=== PATIENT | male | born 1945 | race Caucasian/White ===

== ENCOUNTER 2024-08-19 01:06 | Inpatient (IN) | payer MEDICARE, OTHER ==
[2024-08-19] VITALS (9 sets, daily range): BP systolic 112–117; BP diastolic 51–59; TEMP 97.6–98; O2SAT 95–100
[~2024-08-19] VITALS: Ht 177.8 cm; Wt 106.1 kg
[2024-08-19] MEDS ORDERED: LORAZEPAM (01:22)
[2024-08-19] MEDS ORDERED: GABAPENTIN (01:22)
[2024-08-19] MEDS ORDERED: METFORMIN (01:22)
[2024-08-19] MEDS ORDERED: LOSARTAN (01:22)
[2024-08-19] MEDS: IPRATROPIUM BROMIDE 0.5 MG/2.5 ML NEBU NEB ONE ×2 (01:29→14:28)
[2024-08-19] MEDS: ALBUTEROL SULFATE 2.5 MG/3 ML NEBU NEB ONE (01:30)
[2024-08-19] MEDS ORDERED: ASPIRIN 81 MG TAB.CHEW ONE (01:33)
[2024-08-19] MEDS ORDERED: FUROSEMIDE 20 MG/2 ML VIAL ONE (01:34)
[2024-08-19] MEDS ORDERED: ALBUTEROL SULFATE 2.5 MG/3 ML NEBU ONE (01:34)
[2024-08-19] MEDS ORDERED: IPRATROPIUM BROMIDE 0.5 MG/2.5 ML NEBU ONE (01:34)
[2024-08-19] MEDS ORDERED: NITROGLYCERIN OINT 1 GM PACKET TP ONE ×2 (01:34→01:40)
[2024-08-19] MEDS ORDERED: methylPREDNISolone SOD SUCC 125 MG/2 ML VIAL ONE (01:34)
[2024-08-19] MEDS: methylPREDNISolone SOD SUCC 125 MG/2 ML VIAL IV ONE (01:54)
[2024-08-19] MEDS: FUROSEMIDE 20 MG/2 ML VIAL IV ONE (01:55)
[2024-08-19] MEDS: NITROGLYCERIN OINT 1 GM PACKET TP ONE (01:55)
[2024-08-19] MEDS: ASPIRIN 81 MG TAB.CHEW PO ONE (01:55)
[2024-08-19 01:57] LABS: BASOPHILS # (AUTO) 0.1 K/UL (0.0-0.2); BASOPHILS % (AUTO) 0.8 % (0.0-2.0); EOSINOPHILS # (AUTO) 0.2 K/uL (0.0-0.7); EOSINOPHILS % (AUTO) 2.1 % (0.0-7.0); HEMATOCRIT 35.9 % (36.7-47.1); HEMOGLOBIN 12.2 g/dL (12.5-16.3); LYMPHOCYTES # (AUTO) 1.3 K/uL (0.8-4.8); LYMPHOCYTES % (AUTO) 13.4 % (20.5-51.5); MEAN CORPUSCULAR HEMOGLOBIN 34.6 uug (23.8-33.4); MEAN CORPUSCULAR HGB CONC 34 g/dL (32.5-36.3); MONOCYTES # (AUTO) 0.6 K/uL (0.1-1.30); NEUTROPHILS # (AUTO) 7.7 K/uL (1.8-8.9); NEUTROPHILS % (AUTO) 77.7 % (38.5-71.5); PLATELET COUNT (AUTO) 232 K/uL (152-348); RED BLOOD CELL COUNT(AUTO) 3.52 MIL/uL (4.06-5.63); RED CELL DISTRIBUTION WIDTH 14.1 % (12.1-16.2); WHITE BLOOD COUNT (AUTO) 9.9 K/uL (3.6-10.2)
[2024-08-19 01:58] LABS: DIFFERENTIAL COMMENT 1
[2024-08-19] MEDS ORDERED: HYDROMORPHONE 1 MG/1 ML DISP.SYRIN ONE (02:00)
[2024-08-19] MEDS ORDERED: ONDANSETRON 4 MG/2 ML VIAL ONE (02:00)
[2024-08-19] MEDS: HYDROMORPHONE 1 MG/1 ML DISP.SYRIN IM ONE (02:05)
[2024-08-19] MEDS: ONDANSETRON 4 MG/2 ML VIAL IV ONE (02:05)
[2024-08-19 02:10] LABS: CALCIUM 8.3 mg/dL (8.5-10.1); CARBON DIOXIDE 29 mmol/L (21-32); CHLORIDE 103 mmol/L (98-107); CREATININE 0.9 mg/dL (0.6-1.3); GLUCOSE 151 mg/dL (74-106); POTASSIUM 3.8 mmol/L (3.5-5.1); SODIUM SERUM 139 mmol/L (136-145); UREA NITROGEN, BLOOD 24 mg/dL (7-18)
[2024-08-19 02:18] LABS: ALANINE AMINOTRANSFERASE 26 U/L (16-63); ALBUMIN 3.4 g/dL (3.4-5.0); ALKALINE PHOSPHATASE 55 U/L (50-136); ASPARTATE AMINOTRANSFERASE 12 U/L (15-37); BILIRUBIN,DIRECT 0.2 mg/dL (0.0-0.2); BILIRUBIN,TOTAL 0.6 mg/dL (0.2-1.0); NT-PRO BNP 156 pg/mL (0-125); TOTAL PROTEIN, SERUM 6.6 g/dL (6.4-8.2)
[2024-08-19] MEDS ORDERED: SWABABLE VALVE TRANSFER SET EA MC ONE (03:50)
[2024-08-19] MEDS ORDERED: IV NORMAL SALINE 250 ML IV ONE (03:50)
[2024-08-19] MEDS ORDERED: IOHEXOL 350 100 ML INFUS..BTL ONE (03:50)
[2024-08-19] MEDS ORDERED: ENOXAPARIN SODIUM 100 MG/ML DISP.SYRIN SQ ONE (06:45)
[2024-08-19] MEDS: ENOXAPARIN SODIUM 100 MG/ML DISP.SYRIN SQ ONE (06:51)
[2024-08-19] MEDS ORDERED: REMEDY ESSENTIAL ZINC PASTE 113 GM TP PRN (08:15)
[2024-08-19] MEDS ORDERED: ACETAMINOPHEN 325 MG TABLET PO PRN (08:15)
[2024-08-19] MEDS ORDERED: ONDANSETRON 4 MG/2 ML VIAL IV PRN (08:15)
[2024-08-19] MEDS ORDERED: GABA300C PO (11:43)
[2024-08-19] MEDS ORDERED: METF-440 PO (11:45)
[2024-08-19] MEDS ORDERED: ERGO500040 PO (11:49)
[2024-08-19] MEDS ORDERED: CLON0.1T PO (11:49)
[2024-08-19] MEDS ORDERED: METO50TA16 PO (11:50)
[2024-08-19] MEDS ORDERED: AMLO10TA59 PO (11:51)
[2024-08-19] MEDS ORDERED: ASPI81TA31 PO (11:52)
[2024-08-19] MEDS ORDERED: OMEP40CA21 PO (11:53)
[2024-08-19] MEDS ORDERED: LOSA-22 PO (11:53)
[2024-08-19] MEDS ORDERED: EZET10TA15 PO (11:55)
[2024-08-19] MEDS ORDERED: ROSU10TA2 PO (11:55)
[2024-08-19] MEDS ORDERED: ICOS1CAP PO (11:59)
[2024-08-19] MEDS ORDERED: TAMS-3 PO (11:59)
[2024-08-19] MEDS ORDERED: SPIR25TA6 PO (12:00)
[2024-08-19] MEDS ORDERED: IBUP-1955 PO (12:04)
[2024-08-19] MEDS ORDERED: ACET-2605 PO (12:04)
[2024-08-19] MEDS ORDERED: MOUNJARO 5 MG/0.5 ML SUBCUT (13:34)
[2024-08-19] MEDS ORDERED: ALBUTEROL SULFATE 2.5 MG/3 ML NEBU NEB PRN ×2 (14:15→14:30)
[2024-08-19] MEDS: ALBUTEROL SULFATE 2.5 MG/3 ML NEBU NEB SCH (14:28)
[2024-08-19] MEDS: IPRATROPIUM BROMIDE 0.5 MG/2.5 ML NEBU NEB SCH (14:45)
[2024-08-19] MEDS ORDERED: IPRATROPIUM BROMIDE 0.5 MG/2.5 ML NEBU NEB PRN (14:45)
[2024-08-19] MEDS ORDERED: DEXTROSE 50% 50 ML DISP.SYRIN IV PRN (16:00)
[2024-08-19] MEDS ORDERED: HYDROCODONE/APAP 10-325 MG TABLET PO PRN (16:30)
[2024-08-19] MEDS: HYDROCODONE/APAP 10-325 MG TABLET PO PRN (16:52)
[2024-08-19] MEDS: CEFEPIME HCL 1 G in IV DEXTROSE 5% 50 ML IV SCH (16:53)
[2024-08-19] MEDS: NICOTINE 14 MG/24HR PATCH TD SCH (16:53)
[2024-08-19] MEDS: BLOOD SUGAR DIAGNOSTIC 1 EACH STRIP VI SCH (17:00)
[2024-08-19] MEDS: INSULIN REGULAR, HUMAN 1000 UNIT/10 ML VIAL SQ PRN (17:02)
[2024-08-19] MEDS: FUROSEMIDE 40 MG/4 ML VIAL IV ONE (17:17)
[2024-08-19] MEDS: AZITHROMYCIN IV 500 MG in IV DEXTROSE 5% 250 ML IV SCH (18:11)
[2024-08-19] MEDS ORDERED: Medication Not On Formulary EA (Icosapent Ethyl (Vascepa) 2 GM) PO SCH (18:30)
[2024-08-19] MEDS ORDERED: Medication Not On Formulary EA (Rosuvastatin Calcium (Crestor) 10 MG) PO SCH (21:00)
[2024-08-19] MEDS ORDERED: ATORVASTATIN 20 MG TABLET PO SCH (21:00)
[2024-08-19] MEDS: TAMSULOSIN HCL 0.4 MG CAP.SR.24H PO SCH (21:40)
[2024-08-19] MEDS: METOPROLOL TARTRATE 50 MG TABLET PO SCH (21:41)
[2024-08-19] MEDS: GABAPENTIN 300 MG CAPSULE PO SCH (21:41)
[2024-08-19] MEDS: ENOXAPARIN SODIUM 100 MG/ML DISP.SYRIN SQ SCH (21:44)
[2024-08-19] MEDS: methylPREDNISolone SOD SUCC 125 MG/2 ML VIAL IV SCH (21:56)
[2024-08-20] VITALS (14 sets, daily range): BP systolic 92–132; BP diastolic 42–71; TEMP 97.6–98.9; O2SAT 92–98
[2024-08-20] MEDS: PANTOPRAZOLE SODIUM 40 MG TABLET.DR PO SCH (06:12)
[2024-08-20 06:59] LABS: BASOPHILS % (AUTO) 0.3 % (0.0-2.0); HEMATOCRIT 31.9 % (36.7-47.1); HEMOGLOBIN 10.8 g/dL (12.5-16.3); LYMPHOCYTES # (AUTO) 0.8 K/uL (0.8-4.8); LYMPHOCYTES % (AUTO) 10.1 % (20.5-51.5); MEAN CORPUSCULAR HEMOGLOBIN 34.7 uug (23.8-33.4); MEAN CORPUSCULAR HGB CONC 34 g/dL (32.5-36.3); MEAN CORPUSCULAR VOLUME 102.2 fL (73.0-96.2); MONOCYTES # (AUTO) 0.2 K/uL (0.1-1.30); MONOCYTES % (AUTO) 2.2 % (0.0-11.0); NEUTROPHILS # (AUTO) 6.6 K/uL (1.8-8.9); NEUTROPHILS % (AUTO) 87.4 % (38.5-71.5); PLATELET COUNT (AUTO) 241 K/uL (152-348); RED BLOOD CELL COUNT(AUTO) 3.12 MIL/uL (4.06-5.63); RED CELL DISTRIBUTION WIDTH 13.9 % (12.1-16.2); WHITE BLOOD COUNT (AUTO) 7.5 K/uL (3.6-10.2)
[2024-08-20 07:04] LABS: DIFFERENTIAL COMMENT 1
[2024-08-20 07:10] LABS: CALCIUM 7.9 mg/dL (8.5-10.1); CARBON DIOXIDE 28 mmol/L (21-32); CHLORIDE 102 mmol/L (98-107); CREATININE 1.5 mg/dL (0.6-1.3); GLUCOSE 250 mg/dL (74-106); MAGNESIUM 2.4 mg/dL (1.8-2.4); PHOSPHOROUS 5.8 mg/dL (2.5-4.9); POTASSIUM 4.4 mmol/L (3.5-5.1); SODIUM SERUM 139 mmol/L (136-145); UREA NITROGEN, BLOOD 53 mg/dL (7-18)
[2024-08-20 08:35] LABS: ABG BASE EXCESS 0.8 mmol/L (-2.0-3.0); ABG HCO3 26.6 mmol/L (21.0-28.0); ABG PCO2 47.6 mmHg (35.0-48.0); ABG PH 7.365 (7.350-7.450); ABG SITE RIGHT RADIAL; ABG TOTAL HEMOGLOBIN 11.9 G/dL (13.5-17.5); AaDO2 92.6 mmHg; COHb 0.1 % (0.5-1.5); MetHb 0.1 % (0.0-1.5); O2Hb 92.9 % (94.0-98.0)
[2024-08-20] MEDS ORDERED: AMLODIPINE 10 MG TABLET PO SCH (09:00)
[2024-08-20] MEDS ORDERED: SPIRONOLACTONE 25 MG TABLET PO SCH (09:00)
[2024-08-20] MEDS ORDERED: Medication Not On Formulary EA (Losartan/Hydrochlorothiazide (Losartan-Hctz 100-25 Mg Ta PO SCH (09:00)
[2024-08-20] MEDS ORDERED: Medication Not On Formulary EA (Omeprazole 40 MG) PO SCH (09:00)
[2024-08-20] MEDS ORDERED: CLONIDINE HCL 0.1 MG TABLET PO SCH (09:00)
[2024-08-20] MEDS ORDERED: ASPIRIN 81 MG TAB.CHEW PO SCH (09:00)
[2024-08-20] MEDS ORDERED: EZETIMIBE 10 MG TABLET PO SCH (09:00)
[2024-08-20] MEDS: LOSARTAN POTASSIUM 50 MG TABLET PO SCH (09:10)
[2024-08-20] MEDS: HYDROCHLOROTHIAZIDE 25 MG TABLET PO SCH (09:11)
[2024-08-20] MEDS: LIDOCAINE 5% PATCH TD SCH (09:16)
[2024-08-20] MEDS: MAGNESIUM HYDROXIDE 30 ML LIQUID UDC PO PRN (15:56)
[2024-08-20] MEDS: NITROGLYCERIN OINT 1 GM PACKET TP ONE (18:57)
[2024-08-20] MEDS: IPRATROPIUM BROMIDE 0.5 MG/2.5 ML NEBU NEB SCH (20:22)
[2024-08-20] MEDS: ALBUTEROL SULFATE 2.5 MG/3 ML NEBU NEB SCH (20:22)
[2024-08-21] VITALS (16 sets, daily range): BP systolic 93–116; BP diastolic 44–57; TEMP 97.6–98.6; O2SAT 92–99
[2024-08-21 00:42] LABS: *BILIRUBIN,URIN NEGATIVE (NEGATIVE); *BLOOD, URINE NEGATIVE (NEGATIVE); *CLARITY,URINE CLEAR (CLEAR); *COLOR,URINE YELLOW (YELLOW); *KETONES,URINE TRACE (NEGATIVE); *PROTEIN,URINE NEGATIVE (NEGATIVE); *UROBILINOGEN,URINE 0.2 E.U./dl (NORMAL); LEUKOCYTE ESTERASE ,URINE NEGATIVE (NEGATIVE); NITRITE, URINE NEGATIVE (NEGATIVE); PH,URINE 5.5 (5.0-8.0); UGLUCOSE NEGATIVE (NEGATIVE)
[2024-08-21 00:45] LABS: *CREATININE,URINE 142.9 mg/dL (30-125); *URINE TOTAL PROTEIN RANDOM 21.3 mg/dL (<150/24HR)
[2024-08-21 06:50] LABS: BASOPHILS % (AUTO) 0.1 % (0.0-2.0); HEMATOCRIT 30.4 % (36.7-47.1); HEMOGLOBIN 10.7 g/dL (12.5-16.3); LYMPHOCYTES # (AUTO) 0.7 K/uL (0.8-4.8); LYMPHOCYTES % (AUTO) 8.1 % (20.5-51.5); MEAN CORPUSCULAR HEMOGLOBIN 35.7 uug (23.8-33.4); MEAN CORPUSCULAR HGB CONC 35 g/dL (32.5-36.3); MEAN CORPUSCULAR VOLUME 101.3 fL (73.0-96.2); MONOCYTES # (AUTO) 0.3 K/uL (0.1-1.30); MONOCYTES % (AUTO) 3.7 % (0.0-11.0); NEUTROPHILS # (AUTO) 7.3 K/uL (1.8-8.9); NEUTROPHILS % (AUTO) 88.1 % (38.5-71.5); PLATELET COUNT (AUTO) 226 K/uL (152-348); WHITE BLOOD COUNT (AUTO) 8.3 K/uL (3.6-10.2)
[2024-08-21 06:57] LABS: DIFFERENTIAL COMMENT 1
[2024-08-21 07:06] LABS: CALCIUM 8.1 mg/dL (8.5-10.1); CARBON DIOXIDE 26 mmol/L (21-32); CHLORIDE 103 mmol/L (98-107); CREATININE 1.3 mg/dL (0.6-1.3); GLUCOSE 214 mg/dL (74-106); MAGNESIUM 2.9 mg/dL (1.8-2.4); PHOSPHOROUS 4.3 mg/dL (2.5-4.9); POTASSIUM 4.4 mmol/L (3.5-5.1); SODIUM SERUM 138 mmol/L (136-145); UREA NITROGEN, BLOOD 61 mg/dL (7-18)
[2024-08-21] MEDS: FUROSEMIDE 20 MG/2 ML VIAL IV ONE (09:31)
[2024-08-21] MEDS: CEFEPIME HCL 2 GM in IV DEXTROSE 5% 100 ML IV SCH (11:17)
[2024-08-21] MEDS ORDERED: methylPREDNISolone SOD SUCC 125 MG/2 ML VIAL IV SCH (21:00)
[2024-08-21] MEDS: methylPREDNISolone SOD SUCC 40 MG/ML VIAL IV SCH (21:23)
[2024-08-22] VITALS (10 sets, daily range): BP systolic 109–143; BP diastolic 45–58; TEMP 97.2–98.3; O2SAT 95–99
[2024-08-22] MEDS: TRAZODONE 50 MG TABLET GT PRN (00:55)
[2024-08-22] MEDS ORDERED: TRAZODONE 50 MG TABLET PO PRN (05:46)
[2024-08-22 06:20] LABS: BASOPHILS % (AUTO) 0.1 % (0.0-2.0); EOSINOPHILS % (AUTO) 0.1 % (0.0-7.0); HEMATOCRIT 34.5 % (36.7-47.1); HEMOGLOBIN 11.9 g/dL (12.5-16.3); LYMPHOCYTES # (AUTO) 0.7 K/uL (0.8-4.8); LYMPHOCYTES % (AUTO) 9.5 % (20.5-51.5); MEAN CORPUSCULAR HEMOGLOBIN 34.9 uug (23.8-33.4); MEAN CORPUSCULAR HGB CONC 34 g/dL (32.5-36.3); MEAN CORPUSCULAR VOLUME 101.4 fL (73.0-96.2); MONOCYTES # (AUTO) 0.3 K/uL (0.1-1.30); MONOCYTES % (AUTO) 4.9 % (0.0-11.0); NEUTROPHILS # (AUTO) 5.9 K/uL (1.8-8.9); NEUTROPHILS % (AUTO) 85.4 % (38.5-71.5); PLATELET COUNT (AUTO) 246 K/uL (152-348); RED CELL DISTRIBUTION WIDTH 14.2 % (12.1-16.2); WHITE BLOOD COUNT (AUTO) 6.9 K/uL (3.6-10.2)
[2024-08-22 06:44] LABS: CALCIUM 8.3 mg/dL (8.5-10.1); CARBON DIOXIDE 28 mmol/L (21-32); CHLORIDE 104 mmol/L (98-107); GLUCOSE 215 mg/dL (74-106); MAGNESIUM 2.6 mg/dL (1.8-2.4); PHOSPHOROUS 3.3 mg/dL (2.5-4.9); POTASSIUM 4.6 mmol/L (3.5-5.1); SODIUM SERUM 139 mmol/L (136-145); UREA NITROGEN, BLOOD 45 mg/dL (7-18)
[2024-08-22 06:56] LABS: DIFFERENTIAL COMMENT 1
[2024-08-22] MEDS ORDERED: LEVO500T90 PO (10:46)
[2024-08-22] MEDS ORDERED: METH4TAB3 PO (10:46)
[2024-08-22] MEDS ORDERED: ALBU2.5V7 NEB (10:46)
[2024-08-22] MEDS ORDERED: AZIT500T PO (10:46)
[2024-08-22] MEDS ORDERED: LIDO30AD10 TD (10:46)
[2024-08-22] MEDS ORDERED: APIX5TAB PO (10:46)
[2024-08-23] MEDS ORDERED: CEFEPIME HCL 2 GM in IV DEXTROSE 5% 100 ML IV SCH
[2024-08-25] MEDS ORDERED: ERGOCALCIFEROL 50,000 UNIT CAPSULE PO SCH (09:00)
== END 2024-08-22 15:00 | disposition home or self-care (01) | DRG 175 ==
LOC: ER 01:06 → TELE3 09:35 → MEDSURG3 08-22 08:31
PROVIDERS: ADMIT Nurse Practitioner Acute Care; ATTEND Nurse Practitioner Acute Care
DX: I26.93 Single subsegmental thrombotic pulmonary embolism without acute cor pulmonale (principal); I50.33 Acute on chronic diastolic (congestive) heart failure; J15.69 Pneumonia due to other Gram-negative bacteria; J96.01 Acute respiratory failure with hypoxia; J96.02 Acute respiratory failure with hypercapnia; J44.1 Chronic obstructive pulmonary disease with (acute) exacerbation; J44.0 Chronic obstructive pulmonary disease with (acute) lower respiratory infection; J98.11 Atelectasis; N17.9 Acute kidney failure, unspecified; I11.0 Hypertensive heart disease with heart failure; F17.210 Nicotine dependence, cigarettes, uncomplicated; S39.82XA Other specified injuries of lower back, initial encounter; W06.XXXA Fall from bed, initial encounter; Y92.003 Bedroom of unspecified non-institutional (private) residence as the place of occurrence of the external cause; E78.5 Hyperlipidemia, unspecified; N40.0 Benign prostatic hyperplasia without lower urinary tract symptoms; D64.9 Anemia, unspecified; E66.9 Obesity, unspecified; N62 Hypertrophy of breast; E11.9 Type 2 diabetes mellitus without complications; I25.10 Atherosclerotic heart disease of native coronary artery without angina pectoris; Z91.199 Patient's noncompliance with other medical treatment and regimen due to unspecified reason; Z71.6 Tobacco abuse counseling; Z68.33 Body mass index [BMI] 33.0-33.9, adult; Z79.82 Long term (current) use of aspirin; Z79.84 Long term (current) use of oral hypoglycemic drugs
CPT/HCPCS: 36415; 36600; 71045; 71275; 72110; 76770; 83735; 84100; 84300; 84484; 85025; 85730; 86140; 93005; 93307; 94640; A4606; A4663; G0378; J0456; J0692; J1171; J1650; J1815; J1940; J2405; J2919; J3590; J7050; Q9967